=== PATIENT | female | born 1980 | race Caucasian/White ===

== ENCOUNTER 2017-12-06 12:30 | Emergency (ER) | payer MEDICAID ==
[~2017-12-06] VITALS: Ht 162.6 cm; Wt 92.0 kg
[~2017-12-06 12:30] MED LIST: NITR100C6 PO
[2017-12-06 12:43] VITALS: BP 146/76
[2017-12-06] MEDS ORDERED: CEPH-571 PO (12:48)
[2017-12-06] MEDS ORDERED: TRAM50TA2 PO (12:48)
== END 2017-12-06 13:00 | disposition home or self-care (01) ==
LOC: ER 12:31
DX: K02.9 Dental caries, unspecified (principal); Z88.0 Allergy status to penicillin; Z79.899 Other long term (current) drug therapy
CPT/HCPCS: 99283

== ENCOUNTER 2018-01-01 03:43 | Emergency (ER) | payer MEDICAID ==
[~2018-01-01] VITALS: Ht 162.6 cm; Wt 93.1 kg
[~2018-01-01 03:43] MED LIST changes: +CEPH-571 PO; +TRAM50TA2 PO
[2018-01-01] MEDS ORDERED: CLIN-79 PO (06:28)
[2018-01-01] MEDS ORDERED: TRAM50TA2 PO (06:28)
[2018-01-01 06:46] VITALS: BP 147/80
== END 2018-01-01 06:48 | disposition home or self-care (01) ==
LOC: ER 03:43
DX: K08.89 Other specified disorders of teeth and supporting structures (principal); Z88.0 Allergy status to penicillin; Z79.899 Other long term (current) drug therapy
CPT/HCPCS: 99283

== ENCOUNTER 2020-05-29 16:41 | Emergency (ER) | payer MEDICAID ==
[~2020-05-29] VITALS: Ht 162.6 cm; Wt 81.0 kg
[~2020-05-29 16:41] MED LIST changes: +CLIN150C8 PO; -TRAM50TA2 PO
[2020-05-29 17:06] VITALS: BP 133/94
[2020-05-29] MEDS ORDERED: HYDROcodone/acetaminophen 5mg/325mg tablet PO ONE (17:25)
[2020-05-29] MEDS ORDERED: NAPR-56 PO (17:26)
[2020-05-29] MEDS ORDERED: CLIN150C2 PO (17:26)
--- NOTE | 2020-05-29 17:45 | NUR ---
Patient seen and assessed by provider.
== END 2020-05-29 17:50 | disposition home or self-care (01) ==
LOC: ER 16:41
DX: K08.89 Other specified disorders of teeth and supporting structures (principal); Z88.0 Allergy status to penicillin; Z79.2 Long term (current) use of antibiotics; Z79.899 Other long term (current) drug therapy
CPT/HCPCS: 99283

== ENCOUNTER 2020-07-24 20:20 | Emergency (ER) | payer MEDICAID, OTHER ==
[~2020-07-24] VITALS: Ht 162.6 cm; Wt 77.3 kg
[2020-07-24 21:02] LABS: BASOPHILS # (AUTO) 0.1 X10'3 (0-0.2); EOSINOPHILS # (AUTO) 0.2 X10'3 (0-0.9); EOSINOPHILS % (AUTO) 1.8 % (0-6); HEMATOCRIT 31.9 % (35.0-45.0); HEMOGLOBIN 10.3 g/dl (12.0-16.0); LYMPHOCYTES # (AUTO) 2.7 X10'3 (1.1-4.8); MEAN CORPUSCULAR HEMOGLOBIN 24.2 PG (27.0-31.0); MEAN CORPUSCULAR HGB CONC 32.3 g/dL (33.0-36.5); MEAN CORPUSCULAR VOLUME 74.9 FL (78-98); MEAN PLATELET VOLUME 6.3 FL (7.4-10.4); MONOCYTES # (AUTO) 0.6 X10'3 (0-0.9); MONOCYTES % (AUTO) 6.8 % (2-12); NEUTROPHILS # (AUTO) 5.5 X10'3 (1.8-7.7); NEUTROPHILS % (AUTO) 60.4 % (42-75); PLATELET COUNT 530 X10'3 (140-440); RED BLOOD COUNT 4.26 X10'6 (4.20-5.60); RED CELL DISTRIBUTION WIDTH 18.9 % (11.5-14.5); WHITE BLOOD COUNT 9.1 X10'3 (4.5-11.0)
[2020-07-24 21:11] LABS: CLARITY,URINE CLEAR (Clear); COLOR,URINE YELLOW (Yellow); GLUCOSE, URINE NEGATIVE (Neg); KETONES,URINE NEGATIVE (Neg); LEUKOCYTE ESTERASE ,URINE NEGATIVE (Neg); NITRITES, URINE NEGATIVE (Neg); OCCULT BLOOD,URINE NEGATIVE (Neg); PROTEIN,URINE NEGATIVE (Neg); URINE HCG NEGATIVE (NEG); UROBILINOGEN,URINE 0.2 E.U/dL (0.2-1.0)
[2020-07-24 21:16] LABS: ALANINE AMINOTRANSFERASE 33 U/L (12-78); ALBUMIN/GLOBULIN RATIO 0.9 (1.1-1.5); ALKALINE PHOSPHATASE 64 IU/L (46-116); ANION GAP 7 (8-16); ASPARTATE AMINO TRANSFERASE 14 U/L (10-37); BILIRUBIN,TOTAL 0.2 MG/DL (0.1-1.0); BLOOD UREA NITROGEN 11 MG/DL (7-18); BUN/CREATININE RATIO 14.1 (6.6-38.0); CALCIUM 8.8 MG/DL (8.5-10.1); CHLORIDE 103 MMOL/L (99-107); CREATININE 0.78 MG/DL (0.40-0.90); GLUCOSE 93 MG/DL (70-104); LIPASE 112 U/L (73-393); POTASSIUM 3.9 MMOL/L (3.5-5.1); SODIUM 137 MMOL/L (135-145); TOTAL CARBON DIOXIDE 26.9 MMOL/L (24-32); TOTAL PROTEIN 8.3 G/DL (6.4-8.2); eGFR 82 ML/MIN
[2020-07-24 21:16] LABS: UA COLLECTION TYPE CLN CATCH MIDSTREAM
--- NOTE | 2020-07-24 21:21 | NUR ---
pt is 40 yo female c/o bilateral flank pain radiating to bilateral groin area x2-3 days, +nausea, +chills, waiting to be evaluated
[2020-07-24] MEDS ORDERED: ondansetron 4mg/5ml UD cup PO ONE (22:05)
[2020-07-24] MEDS ORDERED: orphenadrine citrate 60mg/2ml inj. IM ONE (22:05)
[2020-07-24] MEDS ORDERED: ondansetron 4mg rapidly disintigrating tab PO ONE (22:10)
[2020-07-24] MEDS ORDERED: ONDA4TAB12 PO (22:12)
[2020-07-24] MEDS ORDERED: IBUP-1984 PO (22:12)
[2020-07-25 20:43] VITALS: BP 134/102
== END 2020-07-24 22:38 | disposition home or self-care (01) ==
LOC: ER 20:21
DX: M54.5 Low back pain (principal); R10.84 Generalized abdominal pain; Z87.891 Personal history of nicotine dependence; Z88.0 Allergy status to penicillin
CPT/HCPCS: 36415; 80053; 81003; 81025; 83690; 85025; 96372; 99283; J2360

== ENCOUNTER 2022-05-24 18:36 | Emergency (ER) | payer MEDICAID ==
[~2022-05-24] VITALS: Ht 162.6 cm; Wt 81.8 kg
[~2022-05-24 18:36] MED LIST changes: +ONDA4TAB12 PO
[2022-05-24 18:47] VITALS: BP 164/87
[2022-05-24] MEDS ORDERED: DOXYCYCLINE 100MG CAPSULE PO STA (19:41)
[2022-05-24] MEDS ORDERED: sulfamethoxazole/trimethoprim DS (800/160mg) tablet PO ONE (19:45)
[2022-05-24] MEDS ORDERED: SULF1TAB49 PO (19:59)
[2022-05-24] MEDS ORDERED: DOXY100C76 PO (19:59)
[2022-05-24] MEDS ORDERED: HYDR-3965 PO (19:59)
[2022-05-24] MEDS ORDERED: HYDROcodone/acetaminophen 5mg/325mg tablet PO ONE (20:05)
== END 2022-05-24 20:11 | disposition home or self-care (01) ==
LOC: ER 18:36
DX: L03.114 Cellulitis of left upper limb (principal); Z88.0 Allergy status to penicillin; Z79.899 Other long term (current) drug therapy; Z79.2 Long term (current) use of antibiotics
CPT/HCPCS: 99284

== ENCOUNTER 2022-06-04 18:01 | Emergency (ER) | payer MEDICAID ==
[~2022-06-04] VITALS: Ht 162.6 cm; Wt 79.5 kg
[2022-06-04 18:21] VITALS: BP 151/97
[2022-06-04] MEDS ORDERED: LIDOcaine 1% W/epiNEPHrine 1:100,000 20ml vial SQ ONE (19:05)
[2022-06-04] MEDS ORDERED: LIDOCAINE 1%/EPI 1:100,000 inj. 10 ML multi-dose vial SQ ONE (19:10)
[2022-06-04] MEDS ORDERED: SULF1TAB49 PO (19:44)
[2022-06-04] MEDS ORDERED: sulfamethoxazole/trimethoprim DS (800/160mg) tablet PO ONE (19:45)
== END 2022-06-04 20:00 | disposition home or self-care (01) ==
LOC: ER 18:02
DX: L02.414 Cutaneous abscess of left upper limb (principal); F15.20 Other stimulant dependence, uncomplicated; Z88.0 Allergy status to penicillin
CPT/HCPCS: 10060; 99283; J3490

== ENCOUNTER 2023-04-13 13:21 | Emergency (ER) | payer MEDICAID ==
[~2023-04-13] VITALS: Ht 162.6 cm; Wt 79.5 kg
[~2023-04-13 13:21] MED LIST changes: +CLIN-214 PO; -CLIN150C8 PO
[2023-04-13 14:11] LABS: BASOPHILS # (AUTO) 0.1 X10'3 (0-0.2); EOSINOPHILS # (AUTO) 0.1 X10'3 (0-0.9); HEMATOCRIT 34.5 % (35.0-45.0); HEMOGLOBIN 10.7 g/dl (12.0-16.0); LYMPHOCYTES # (AUTO) 1.7 X10'3 (1.1-4.8); MEAN CORPUSCULAR HEMOGLOBIN 23.6 PG (27.0-31.0); MEAN CORPUSCULAR HGB CONC 31.1 g/dL (33.0-36.5); MEAN CORPUSCULAR VOLUME 75.9 FL (78-98); MONOCYTES # (AUTO) 0.3 X10'3 (0-0.9); NEUTROPHILS # (AUTO) 2.2 X10'3 (1.8-7.7); RED BLOOD COUNT 4.54 X10'6 (4.20-5.60); RED CELL DISTRIBUTION WIDTH 18.8 % (11.5-14.5); WHITE BLOOD COUNT 4.4 X10'3 (4.5-11.0)
[2023-04-13 14:13] LABS: BASOPHILS % (AUTO) 1.4 % (0-1); EOSINOPHILS % (AUTO) 2.4 % (0-6); MEAN PLATELET VOLUME 6.1 FL (7.4-10.4); MONOCYTES % (AUTO) 7.3 % (2-12); NEUTROPHILS % (AUTO) 50.9 % (42-75); PLATELET COUNT 470 X10'3 (140-440)
[2023-04-13 14:26] LABS: ALANINE AMINOTRANSFERASE 22 U/L (12-78); ALBUMIN 3.5 G/DL (3.4-5.0); ALBUMIN/GLOBULIN RATIO 0.8 (1.1-1.5); ALKALINE PHOSPHATASE 89 IU/L (46-116); ANION GAP 10 (8-16); ASPARTATE AMINO TRANSFERASE 18 U/L (10-37); BILIRUBIN,TOTAL 0.1 MG/DL (0.1-1.0); BLOOD UREA NITROGEN 16 MG/DL (7-18); BUN/CREATININE RATIO 19.8 (10.0-20.0); CALCIUM 9.1 MG/DL (8.5-10.1); CHLORIDE 104 MMOL/L (99-107); CREATININE 0.81 MG/DL (0.40-0.90); GLUCOSE 98 MG/DL (70-104); LIPASE 107 U/L (73-393); POTASSIUM 4.1 MMOL/L (3.5-5.1); SODIUM 139 MMOL/L (135-145); TOTAL CARBON DIOXIDE 25.3 MMOL/L (24-32); TOTAL PROTEIN 8.1 G/DL (6.4-8.2); eGFR 78 ML/MIN
[2023-04-13 14:44] LABS: ANISOCYTOSIS 2+; LARGE PLATELETS FEW; MICROCYTOSIS 1+; PLATELET ESTIMATE INCREASED
[2023-04-13 14:47] VITALS: BP 151/99
[2023-04-13 15:11] LABS: URINE HCG NEGATIVE (NEG)
[2023-04-13 15:12] LABS: CLARITY,URINE CLOUDY (Clear); COLOR,URINE YELLOW (Yellow); GLUCOSE, URINE NEGATIVE (Neg); KETONES,URINE NEGATIVE (Neg); LEUKOCYTE ESTERASE ,URINE SMALL (Neg); NITRITES, URINE POSITIVE (Neg); OCCULT BLOOD,URINE NEGATIVE (Neg); PROTEIN,URINE NEGATIVE (Neg); UROBILINOGEN,URINE 0.2 E.U/dL (0.2-1.0)
[2023-04-13 15:13] LABS: UA COLLECTION TYPE CLN CATCH MIDSTREAM
[2023-04-13 15:19] LABS: SQUAMOUS EPITHELIAL CELL,UR MANY /LPF (FEW)
[2023-04-13 15:20] LABS: MUCUS STRANDS MODERATE /LPF (Neg)
[2023-04-13 15:22] LABS: RBC,URINE 0-2 /HPF (0-2); TRANSITIONAL EPI CELLS,URINE FEW /HPF
[2023-04-13 15:24] LABS: BACTERIA,URINE 4+ /HPF (Neg); WBC CLUMPS,URINE FEW /HPF (NEGATIVE)
== END 2023-04-13 15:32 | disposition home or self-care (01) ==
LOC: ER 13:21
DX: R20.0 Anesthesia of skin (principal); R00.0 Tachycardia, unspecified; F15.90 Other stimulant use, unspecified, uncomplicated; Z88.0 Allergy status to penicillin
CPT/HCPCS: 36415; 80053; 81001; 81025; 83690; 85008; 85025; 99283

== ENCOUNTER 2023-12-14 19:40 | Emergency (ER) | payer MEDICAID ==
[~2023-12-14] VITALS: Ht 162.6 cm; Wt 92.4 kg
[2023-12-14 19:43] VITALS: TEMP 98.6
[2023-12-14 21:00] VITALS: BP 133/93; PULSE 92; RESP 16; O2SAT 98
[2023-12-14 21:20] LABS: BASOPHILS # (AUTO) 0.1 X10'3 (0-0.2); BASOPHILS % (AUTO) 1.1 % (0-1); EOSINOPHILS # (AUTO) 0.2 X10'3 (0-0.9); EOSINOPHILS % (AUTO) 2.4 % (0-6); HEMATOCRIT 30.5 % (35.0-45.0); HEMOGLOBIN 9.8 g/dl (12.0-16.0); LYMPHOCYTES % (AUTO) 30.3 % (21-51); MEAN CORPUSCULAR HEMOGLOBIN 25.2 PG (27.0-31.0); MEAN CORPUSCULAR HGB CONC 32.1 g/dL (33.0-36.5); MEAN CORPUSCULAR VOLUME 78.4 FL (78-98); MEAN PLATELET VOLUME 6.5 FL (7.4-10.4); MONOCYTES # (AUTO) 0.5 X10'3 (0-0.9); MONOCYTES % (AUTO) 7.1 % (2-12); NEUTROPHILS # (AUTO) 3.8 X10'3 (1.8-7.7); NEUTROPHILS % (AUTO) 59.1 % (42-75); PLATELET COUNT 437 X10'3 (140-440); RED CELL DISTRIBUTION WIDTH 16.6 % (11.5-14.5); WHITE BLOOD COUNT 6.5 X10'3 (4.5-11.0)
[2023-12-14 21:37] LABS: ALANINE AMINOTRANSFERASE 36 U/L (12-78); ALBUMIN 3.3 G/DL (3.4-5.0); ALBUMIN/GLOBULIN RATIO 0.8 (1.1-1.5); ALKALINE PHOSPHATASE 72 IU/L (46-116); ANION GAP 8 (8-16); ASPARTATE AMINO TRANSFERASE 17 U/L (10-37); BILIRUBIN,TOTAL 0.1 MG/DL (0.1-1.0); BLOOD UREA NITROGEN 9 MG/DL (7-18); BUN/CREATININE RATIO 12.2 (10.0-20.0); CALCIUM 8.8 MG/DL (8.5-10.1); CHLORIDE 107 MMOL/L (99-107); CREATININE 0.74 MG/DL (0.40-0.90); GLUCOSE 107 MG/DL (70-104); LIPASE 28 U/L (16-77); POTASSIUM 4.1 MMOL/L (3.5-5.1); SODIUM 143 MMOL/L (135-145); TOTAL CARBON DIOXIDE 27.7 MMOL/L (24-32); TOTAL PROTEIN 7.6 G/DL (6.4-8.2); eCRCL 85 ML/MIN; eGFR 86 ML/MIN
== END 2023-12-14 22:39 | disposition home or self-care (01) ==
LOC: ER 19:42
DX: R20.0 Anesthesia of skin (principal); F15.10 Other stimulant abuse, uncomplicated; Z88.0 Allergy status to penicillin; Z79.899 Other long term (current) drug therapy; Z79.1 Long term (current) use of non-steroidal anti-inflammatories (NSAID); Z79.2 Long term (current) use of antibiotics
CPT/HCPCS: 36415; 80053; 83690; 85025; 99283

== ENCOUNTER 2023-12-15 17:02 | Emergency (ER) | payer MEDICAID | END 2023-12-15 19:29 | disposition left against medical advice (07) | LOC: ER 18:08 | DX: R20.0 Anesthesia of skin (principal); Z53.21 Procedure and treatment not carried out due to patient leaving prior to being seen by health care provider ==

== ENCOUNTER 2024-11-02 15:41 | Emergency (ER) | payer MEDICAID ==
[~2024-11-02] VITALS: Ht 162.6 cm; Wt 79.5 kg
[~2024-11-02 15:41] MED LIST changes: +ONDA-243 PO; -ONDA4TAB12 PO
[2024-11-02 16:17] VITALS: BP 169/64
== END 2024-11-02 16:47 | disposition home or self-care (01) ==
LOC: ER 15:41
DX: I10 Essential (primary) hypertension (principal); F15.90 Other stimulant use, unspecified, uncomplicated; Z88.0 Allergy status to penicillin
CPT/HCPCS: 93005; 99283